=== PATIENT | male | born 2000 | race Caucasian/White ===

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

== ENCOUNTER 2021-10-21 07:16 | Emergency (ER) | payer MEDICAID, SELFPAY ==
[2021-10-21 07:19] VITALS: BP 152/64; PULSE 65; RESP 16; TEMP 36.3; O2SAT 100
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
== END 2021-10-21 07:54 | disposition home or self-care (01) ==
PROVIDERS: Emergency Provider Student in an Organized Health Care Education/Training Program; PCP Student in an Organized Health Care Education/Training Program
DX: S61.211A Laceration without foreign body of left index finger without damage to nail, initial encounter (principal); W26.8XXA Contact with other sharp object(s), not elsewhere classified, initial encounter
CPT/HCPCS: 12041; 99281; 99282

== ENCOUNTER 2022-07-20 17:47 | Outpatient (REF) | payer MEDICAID, SELFPAY ==
[2022-07-22 09:57] LABS: Hepatitis C Ab w Rflx HCV PCR Negative (Negative)
[2022-07-22 10:11] LABS: HSV Type 1 Ab, IgG Positive (Negative); HSV Type 2 Ab, IgG Negative (Negative)
[2022-07-22 10:25] LABS: HIV-1/2 Ag & Ab Screen Negative (Negative)
[2022-07-22 10:46] LABS: Syphilis Serology (RPR) Negative (Negative)
[2022-07-22 14:44] LABS: Chlamydia Result Negative (Negative); GC Result Negative (Negative)
== END 2022-07-20 17:48 | disposition home or self-care (01) ==
LOC: LBN 17:47
PROVIDERS: PCP Student in an Organized Health Care Education/Training Program; Visit Provider Nurse Practitioner Family
DX: J02.9 Acute pharyngitis, unspecified (principal); Z11.3 Encounter for screening for infections with a predominantly sexual mode of transmission; Z11.4 Encounter for screening for human immunodeficiency virus [HIV]; Z11.59 Encounter for screening for other viral diseases
CPT/HCPCS: 86803; 87389; 87491; 87529; 87591; 86592; 86695; 86696; 87070